=== PATIENT | male | born 1995 | race Caucasian/White ===

== ENCOUNTER 2021-02-25 03:37 | Emergency (ER) | payer OTHER ==
[~2021-02-25] VITALS: Ht 188 cm; Wt 84.1 kg
[2021-02-25] MEDS ORDERED: KETOROLAC 30 MG/ML 1ML VIAL IV ONE (04:30)
[2021-02-25] MEDS ORDERED: METOCLOPRAMIDE INJ 10MG/2ML VIAL (J2765 PER 1) IV ONE (04:30)
[2021-02-25 05:15] VITALS: BP 115/65
== END 2021-02-25 05:30 | disposition home or self-care (01) ==
LOC: M ED 03:37
DX: H53.10 Unspecified subjective visual disturbances (principal); R51.9 Headache, unspecified
CPT/HCPCS: 96374; 96375; 99284; J1885; J2765